=== PATIENT | female | born 1950 | race Caucasian/White ===

== ENCOUNTER 2024-01-13 10:59 | Day surgery (SDC) | payer OTHER ==
[~2024-01-13] VITALS: Ht 157.5 cm; Wt 71.5 kg
[~2024-01-13 10:59] MED LIST: ACET250 PO; ATORVALIQ20 MG/5 ML PO; Balanced Salt Epinephrine Irrigation Solution 500 mL IR SCH; CHLO4 PO; Crutch1 EACH MISC; EPITOL200 M2 PO; Lidocaine HCl/Pf 1% 5 ML VIAL XX SCH; Moxifloxacin HCL 0.5 MG/0.1 ML 0.4MLSYR RIGHTEYE SCH; NS 500 ML IV ONE; PHENYLEPHRINE\\TROPICAMIDE\\TETRACAINE OPHTHALMIC DILATING SOLN RIGHTEYE PRN; Percocet 5-3251 EACH PO; Povidone-Iodine 450 DROP/30 ML Solution ONE; Povidone-Iodine 450 DROP/30 ML Solution RIGHTEYE SCH; Tetracaine HCl/Pf 0.5% Opth Soln 4 ml ONE; Zofran Odt4 MG SL; [UNRECOGNIZED DRUG - CODE] PO
[2024-01-13] MEDS ORDERED: FentaNYL Citrate 50 MCG/ML 2 ML Injection ONE (11:31)
[2024-01-13] MEDS ORDERED: Midazolam HCl 1MG / ML 2ML Vial ONE (11:31)
[2024-01-13] MEDS ORDERED: NS 500 ML IV ONE (12:07)
--- NOTE | 2024-01-13 12:09 | NUR ---
01/13/24 1209 Negin Sosa EYE: PLACED TETRACAINE AT 1154, PLEDGET AT 1155.
[2024-01-13 13:15] VITALS: BP 132/63
== END 2024-01-13 13:06 | disposition home or self-care (01) ==
LOC: ORSCSDS 10:59
PROVIDERS: Student in an Organized Health Care Education/Training Program
PROC: 08RJ3JZ Replacement of Right Lens with Synthetic Substitute, Percutaneous Approach (ICD-10-PCS; principal; 2024-01-13 12:30)
DX: H25.811 Combined forms of age-related cataract, right eye (principal); Z96.1 Presence of intraocular lens; G40.909 Epilepsy, unspecified, not intractable, without status epilepticus; E78.00 Pure hypercholesterolemia, unspecified; Z79.899 Other long term (current) drug therapy
CPT/HCPCS: J2250; J3010; J7040; V2632